=== PATIENT | male | born 1995 | race Caucasian/White ===

== ENCOUNTER → 2023-04-28 08:28 | Outpatient (CLI) | payer OTHER, SELFPAY ==
--- NOTE | 2023-04-28 08:43 | XR_ITS ---
FINAL REPORT CLINICAL HISTORY: POST FRACTURE follow up COMPARISON: None FINDINGS: 2 views of the elbow were obtained. There is a radial head fracture present, without significant depression or joint effusion. The joint spaces are intact. The soft tissues are unremarkable. IMPRESSION: Radial head fracture, with no significant depression or joint effusion. Reviewed, Interpreted and Dictated by Tonya Martin MD Transcribed by Sis Sandoval Authenticated and [facility]
== END ==
LOC: LAB 08:34 → RAD 08:37
DX: Z87.81 Personal history of (healed) traumatic fracture (principal)
CPT/HCPCS: 73070